=== PATIENT | female | born 1950 | race Caucasian/White ===

== ENCOUNTER 2016-09-25 13:45 | Outpatient (RCR) | payer OTHER ==
--- NOTE | 2016-08-17 14:21 | PT/OT/ST INITIAL EVALUATION ---
[facility], [facility]. PHYSICAL/OCCUPATIONAL THERAPY [address] [place], [place] [id number] PLAN OF CARE/ASSESSMENT FOR OUTPATIENT REHABILITATION (Complete for Initial Claims Only) 1. PATIENT'S NAME Irish Lewis 2. ACC # [id number] 3. REFERRING PHYSICIAN Dr. Wilson 4. PRIMARY DX Right total knee arthroplasty 5. SECONDARY DX Right knee pain, right knee stiffness, difficulty walking and weakness. 6. ONSET DATE 03/2016 the pain began and on 08/11/2016 surgery. 7. REFERRAL DATE 08/11/2016 8. SOC. DATE/TIME 08/14/2016 1:13 p.m. to 2:04 p.m. 9. CHARGES PT evaluation 04914 Therapeutic exercise 50845 Vasopneumatic device [id number] 10. G. CODES 11. PRIOR LEVEL OF FUNCTION; PERTINENT HISTORY (Prior therapy results, reason for referral.) S: Prior to therapy the patient consented to today's evaluation and treatment. The patient is a 65-year-old female referred to physical therapy by Dr. Wilson secondary to a right total knee arthroplasty on 08/11/2016. Current complaint/Mechanism of injury: Right knee pain. Functional performance/Prior level of function: The Lower Extremity Functional Scale rated the patient as 28/80. 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 She states that she can be on her feet for 30 minutes and then off her feet for 30 minutes for a fair amount of time, or she could also be up and down with no real schedule for 10 hour days, 4 days a week. Therapy History: None The patient rates the current pain level as 5/10 up to 10/10 and describes as burning, aching and sharp. Obstacles to delivery of care: None noted. Aggravating factors: None. Relieving factors: None Diagnostic testing: None Past medical history includes osteoarthritis, hypertension that is controlled. Past surgical history includes left partial knee replacement in September 2007, which is currently doing well. Current medications: Tylenol 10 mg, Percocet, celecoxib, Lisinopril/hydrochlorothiazide, tramadol. The patient states she may be taking OxyContin, but would not take OxyContin and Percocet at the same time. Leisure activities: Include sitting at her house and going to [employer] to visit her daughters. Activity level: Listed as moderate. Health rating: Overall health rating is listed as excellent. The patient's goal for physical therapy is to get back to where she was before. 12. INITIAL ASSESSMENT/SAFETY PRECAUTIONS/MEDICAL COMPLICATIONS (Level of function at start of care. Be specific, use objective measures, list problems.) O: APPEARANCE, OBSERVATION AND GAIT: The patient presents to physical therapy with a right total knee replacement using a front-wheeled walker. The patient states that she lives alone and has 3 steps into her home with 1 rail. She has a basement, but she does not have to go into the basement. She lives with two dogs. Her sister will be here for a couple of weeks and if she needs someone here longer, then her daughters will be available. The patient is currently using a polar pack. PALPATION: The patient did not have any significant tenderness to any one location and in general her right knee is painful. SPECIAL TESTS: Bilateral LE negative Homans. RANGE OF MOTION/FLEXIBILITY: Knee flexion left 104 degrees sitting, extension 3 degrees of hyperextension, right knee sitting 90 degrees, extension -9 degrees. STRENGTH: Strength at her knees was not formally tested due to surgery. Upon observation, the patient rates a 3/5 on her right knee flexion and extension. TODAY'S TREATMENT: Included the initial PT evaluation followed by therapeutic exercise and vasopneumatic device. 13. INITIAL POC: (Specify procedures, modalities, short and fdc goals) A: The patient presents to physical therapy with the diagnosis of right total knee replacement with functional limitations of right knee pain, right knee stiffness, difficulty walking and weakness. PROGNOSIS: The patient has a good prognosis for increased active range of motion with decreased pain with regular therapy attendance and compliance with prescribed home exercise program. CONTRAINDICATIONS, PRECAUTIONS AND OBSTACLES TO TREATMENT: No contraindications, precautions, or obstacles are known at this time. GOALS: 1. The patient is to have a decrease in pain of the right knee to less than or equal to 2/10 in 6 weeks in order to ambulate without deviation and without assistive device. 2. The patient is to have an increase of active range of motion of the right knee to 0 to 128 degrees in 6 weeks to perform light housework and bed mobility without deviation. 3. The patient is to have an increase in manual muscle testing of the right knee to 4+/5 in 6 weeks to return to work and to go up and down steps without deviation. 4. The patient is to be independent with a progressive home exercise program. The prognosis and goals were discussed with the patient, as well as the expected outcome and possible risks. The patient agreed to undergo PT evaluation and further treatment. P: Plan to treat this patient 2 to 3 times a week for 6 weeks to address functional limitations secondary to right total knee arthroplasty including right knee pain, right knee weakness, right knee stiffness and difficulty walking. Treatment to include modalities for pain and inflammation, manual therapy interventions, therapeutic exercise, active and passive range of motion, gait training, balance and proprioceptive training, neural reeducation and patient education and prescription of progressive home exercise program as tolerable. 15. PHYSICIAN SIGNATURE ? ON FILE OR ENTER HERE: 16. DATE: I certify the need for these services furnished under this plan of care and if for partial hospitalization. 17. CERTIFICATION FROM THROUGH
[~2016-09-25 13:45] MED LIST: ASPI-586 PO; CALC-140 PO; CELE-63 PO; DIPH25CA79 PO; HYDR-3702 PO; LEVO5TAB18 PO; LISI1TAB6 PO; MMT17NA
== END 2016-09-28 16:09 | disposition home or self-care (01) ==
LOC: PT 13:45
PROVIDERS: ATTEND Orthopaedic Surgery Adult Reconstructive Orthopaedic Surgery
DX: Z96.651 Presence of right artificial knee joint (principal)